=== PATIENT | male | born 1960 | race Caucasian/White ===

== ENCOUNTER 2024-08-01 11:41 | Outpatient (AMB) | payer OTHER, SELFPAY ==
--- NOTE | 2024-08-01 10:45 | A.OFFPC_ITS ---
Vital Signs 08/01/24 11:56 Height 5 ft 10.08 in Weight 217 lb 4 oz BMI 31.1 BP 124/76 Blood Pressure Location Lt brachial Position Sitting Respiration 14 Pulse 78 Pulse Source Pulse Oximeter Temp 98.6 F Temp Source Oral Pulse Oximetry (%) 97 Oxygen Delivery Method Room Air Intake Visit Reasons: [facility] FROM [facility] Intake Note: New patient visit Applied Psychology Professor Required: No Allergies No Known Allergies Allergy (Verified 08/01/24 11:52) Tobacco use date assessed: 08/01/24 Dental Screening Dental Screen Date: 08/01/24 Did you have a dental visit in the last 12 months?: No Did you have a dental problem in the last 6 months where you did not have access to dental care?: No Was dental information given to patient?: Patient has dentist HPI HPI Comments History of Present Illness Details This is a 63-year-old male with a past medical history of lower back pain, vitamin-D deficiency, BPH, prostate cancer and pancreatitis presenting for follow up. He transferred from my panel at [facility] primary care. His last physical exam was 12/29/2023. He has since switched insurance. The patient was diagnosed with prostate cancer in 02/2024. He was already seen by Dr. Comer for BPH. He underwent TURP in 01/16/2021. He was referred back to Dr. Comer when his PSA came back elevated. Patient has a prostatectomy scheduled on 08/21/2024. He has a preop scheduled at the [facility] preop clinic on 08/16/2024. He was seen at the emergency department at [facility] on 07/22/2024 for evaluation of lower abdominal pain radiating to the penis and testicles. Patient says he had a CT scan and urine and blood tests. They ruled out obstruction, infection, aneurysm and stones. He still gets the pain, but it comes and goes. He feels like it is a nerve pain. Has a history of lower back pain which has been doing well since he got arch supports in his shoes. When he has the pain in his lower abdomen he also gets a tingling feeling in his right anterior thigh, and if he does not change positions it will progress to pain. There is no weakness in his extremities or loss of bowel or bladder control. Patient has a history of high blood pressure and has worked on lifestyle modifications. His blood pressure is normal today. He has a history of vitamin-D deficiency. He has taken supplements inconsistently. His vitamin D level was checked after his physical exam. Records transfer pending. Patient had a colonoscopy that was normal on 12/14/2020. Repeat examination was recommended in 10 years. Hyperlipidemia is treated with atorvastatin 20 mg. ROS: Constitutional: No unexplained weight loss, fever, chills, fatigue or night sweats. Respiratory: No shortness of breath Cardiovascular: No chest pain Gastrointestinal: No anorexia, nausea, vomiting or diarrhea. No blood in stools. Genitourinary: No dysuria, hematuria, urinary frequency. Neurologic: No headache, dizziness, syncope, unilateral weakness, ataxia, numbness Musculoskeletal: see HPI Hematologic/Lymphatics: No bleeding or bruising. No painful lymph nodes. Skin: No rash or itching. Psychiatric: No depression. No SI/HI. Physical exam: Constitutional: Alert, in no distress. Head: Normocephalic. Eyes: Pupils are equal, round and reactive to light. Extraocular muscles intact. Neck: Supple, Full range of motion. No lymphadenopathy. No palpable thyroid masses. Respiratory: Clear to auscultation. Cardiovascular: S1 S2 regular. No murmurs. Gastrointestinal: Abdomen soft, non-tender, non-distended. Normal bowel sounds. No palpable masses. Genitourinary: No costovertebral angle tenderness. Extremities: Warm and well perfused. No clubbing, cyanosis or edema. Psychiatric: Normal mood and affect [facility] Medical History (Updated 08/01/24 @ 13:26 by MERARI Stanley) Prostate cancer Right leg paresthesias Vitamin D deficiency Pilonidal cyst Pancreatitis Palpitations HTN (hypertension) Obesity, Class I, BMI 30.0-34.9 (see actual BMI) Dermatographism Congenital spondylolisthesis Chest pressure Benign prostatic hyperplasia Surgical History (Updated 08/01/24 @ 13:26 by MERARI Stanley) S/P TURP (transurethral resection of prostate) Social History Housing: House Patient Tobacco Use Status: Never used Tobacco e-Cigarette/Vaping Use: Never Used Second Hand Smoke Exposure: No service: No Current occupational status: employed and retired Cognitive needs: No Hearing needs: No Vision needs: No Questionnaire PHQ-9 Over the last 2 weeks, how often have you been bothered by any of the following problems? 1. Little interest or pleasure in doing things: not at all 2. Feeling down, depressed, or hopeless: not at all 3. Trouble falling or staying asleep, or sleeping too much: not at all 4. Feeling tired or having little energy: not at all 5. Poor appetite or overeating: not at all 6. Feeling bad about yourself - or that you are a failure or have let yourself or your family down: not at all 7. Trouble concentrating on things, such as reading the newspaper or watching television: not at all 8. Moving or speaking so slowly that other people could have noticed. Or the opposite - being so fidgety or restless that you have been moving around a lot more than usual: not at all 9. Thoughts that you would be better off or of hurting yourself in some way: not at all Total score: 0 Depression Screening Interpretation: Negative Depression Screening Done: Yes 00269 - PHQ-9 Billing: Yes Source: Developed by Drs. Ozzie Restrepo, Lilo Matta, Mikey Andrews and colleagues, with an educational nilsa from [employer]. Thrive Questionnaire Date Thrive assessed: 08/01/24 I am a: Patient What is your living situation today?: I have a steady place to live Within the past 12 months, did the food you bought not last and you didn't have the money to get more?: Never true Within the past 12 months, did you worry whether your food would run out before you got money to buy more?: Never true Do you have trouble paying for medicines?: No Do you have trouble getting transportation to medical appointments?: No Do you have trouble paying your heating and electricity bill?: No Do you have trouble taking care of your child, family member or friend?: No Do you have trouble with day-to-day activities such as bathing, preparing meals, shopping, managing finances, etc.?: No Are you currently unemployed and looking for a job?: No Are you interested in more education?: No Please select the resources that you would like help with: None Currently or been in a relationship where the following occur: No concerns reported THRIVE Score: 0 AUDIT C Alcohol Use Questionnaire (AUDIT-C) 1. How often do you have a drink containing alcohol?: 4 or more times a week 2. How many drinks containing alcohol do you have on a typical day when you are drinking?: 3 or 4 3. How often do you have six or more drinks on one occasion?: Monthly Total Score: 7 SIS-7 AMB Questionnaire SIS-7 Date SIS - 7 assessed: 08/01/24 Feeling nervous, anxious, or on edge: 1 = Several days Not being able to stop or control worryin = Not at all Worrying too much about different things: 0 = Not at all Trouble relaxin = Several days Being so restless that it is hard to sit still: 0 = Not at all Becoming easily annoyed or irritable: 0 = Not at all Feeling afraid as if something awful might happen: 0 = Not at all Total SIS-7 score (0-4 normal; 5-9 mild; 10-14 moderate; 15-21 severe): 2 Source: Developed by Drs. Ozzie Restrepo, Lilo Matta, Mikey Andrews and colleagues, with an educational nilsa from [employer]. SIS-7 Assessment Billing SIS-7 Assessment Tool: SIS-7 Assessment 31166 Physical exam (Primary Care) Vital Signs: Last Vital Signs Temp 98.6 F 08/01/24 11:56 Pulse 78 08/01/24 11:56 Resp 14 08/01/24 11:56 BP 124/76 08/01/24 11:56 Pulse Ox 97 08/01/24 11:56 Oxygen Delivery Method Room Air 08/01/24 11:56 BMI result Body Mass Index 31.1 Tobacco/Smoking Status: Tobacco use Status Tobacco use date assessed 08/01/24 08/01/24 12:03 Patient Tobacco Use Status Never used Tobacco 08/01/24 12:03 e-Cigarette/Vaping Use Never Used 08/01/24 12:03 PHQ-9: PHQ-9 Score PHQ-9: Total score 0 08/01/24 12:51 Depression Screening Interpretation: Negative Thrive Assessment: Date of Thrive Assessment Date Thrive assessed 08/01/24 08/01/24 12:51 Currently or been in a relationship where the following occur: No concerns reported Coding Level of Care Code Est Pt Level 4 (59670) Complex EM visit Add On G2211 Diagnoses Right leg paresthesias R20.2 Prostate cancer C61 Lower abdominal pain R10.30 Additional Codes SIS-7 Assessment Billing - SIS-7 Assessment Tool: SIS-7 Assessment 59072 ([id number]) Assessment & Plan Assessment & Plan (1) Right leg paresthesias: Code(s): R20.2 - Paresthesia of skin Category: Medical (2) Prostate cancer: Code(s): C61 - Malignant neoplasm of prostate Category: Medical (3) Lower abdominal pain: Code(s): R10.30 - Lower abdominal pain, unspecified Plan Patient is well-appearing. No red flags on exam today. Requested records from [facility]. Patient says they suspect it may be a nerve irritated due to enlarged prostate/prostate cancer. Prostatectomy is scheduled this month. He has a preop controlled with the [facility] preop clinic. Warning signs warranting re-evaluation at the emergency department reviewed with the patient. He has a history of chronic lower back pain, but it has not been a problem recently. If symptoms persist following surgery we discussed moving forward with an MRI of the lumbar spine. He will contact me if his symptoms do not resolve. He will schedule a physical in 2024.
[2024-08-01 11:56] VITALS: BP 124/76; PULSE 78; RESP 14; TEMP 37; O2SAT 97; BMI 31.1
== END 2024-08-01 12:44 | disposition home or self-care (01) ==
PROVIDERS: Visit Provider Physician Assistant Medical
DX: R20.2 Paresthesia of skin (principal); C61 Malignant neoplasm of prostate; R10.30 Lower abdominal pain, unspecified

== ENCOUNTER → 2024-08-01 11:41 | Outpatient (BNVA) | payer OTHER, SELFPAY | PROVIDERS: Visit Provider Physician Assistant Medical | DX: R20.2 Paresthesia of skin (principal); C61 Malignant neoplasm of prostate; R10.30 Lower abdominal pain, unspecified | CPT/HCPCS: 96127 ==

== ENCOUNTER 2025-01-20 08:05 | Outpatient (AMB) | payer OTHER, SELFPAY ==
--- NOTE | 2025-01-20 08:07 | MHC.PC.OV ---
Vital Signs 01/20/25 08:12 Height 5 ft 10.08 in Weight 222 lb 4 oz BMI 31.8 BP 136/82 Blood Pressure Location Lt brachial Position Sitting Respiration 14 Pulse 64 Pulse Source Pulse Oximeter Pulse Oximetry (%) 100 Oxygen Delivery Method Room Air Intake Visit Reasons: Annual PE Intake Note: Physical Practical Ministries Professor Required: No Allergies No Known Allergies Allergy (Verified 01/20/25 08:10) Tobacco use date assessed: 01/20/25 Dental Screening Dental Screen Date: 08/01/24 HPI HPI Comments History of Present Illness Details This is a 64-year-old male with a past medical history of lower back pain, vitamin-D deficiency, BPH, prostate cancer and pancreatitis presenting for a physical exam. The patient was diagnosed with prostate cancer in February 2024. He was already seen by Dr. Comer for BPH and TURP. He was referred back to Dr. Comer when his PSA came back elevated. Patient underwent prostatectomy 08/21/2024. No complications other than mild ED which is urologist treats with tadalafil 20 mg. Patient has a history of high blood pressure and has worked on lifestyle modifications. His blood pressure is mildly elevated today. He is very active. He plays golf regularly and runs to golf leaves. He follows a low-sodium diet. He does not smoke. He has a history of vitamin-D deficiency. He is on a multivitamin which contains vitamin-D. Patient had a colonoscopy that was normal on 12/14/2020. Repeat examination was recommended in 10 years. Hyperlipidemia is treated with atorvastatin 20 mg. He endorses bilateral, chronic tinnitus since he was in his 20s or 30s. It is not associated with headache or dizziness or hearing loss. In the past 2 years he notices it has gotten a little bit worse. He will schedule an eye exam. We did not have Prevnar 20 vaccine available at the office today so he will receive this at his pharmacy. ROS: Constitutional: No unexplained weight loss, fever, chills, fatigue or night sweats. Eyes: No vision changes, blurry vision, double vision, eye pain, eye redness, eye discharge. ENT: No hearing loss, ear pain, sneezing, congestion, runny nose or sore throat. Respiratory: No shortness of breath, cough or sputum production. Cardiovascular: No chest pain, chest pressure or chest discomfort. No palpitations or pedal edema. Gastrointestinal: No anorexia, nausea, vomiting or diarrhea. No abdominal pain or blood in stool. Genitourinary: No dysuria, hematuria, urinary frequency. Neurologic: No headache, dizziness, syncope, unilateral weakness, ataxia, numbness or tingling in the extremities. Musculoskeletal: No muscle pain, back pain, joint pain or swelling. Hematologic/Lymphatics: No bleeding or bruising. No painful lymph nodes. Skin: No rash or itching. No changing or new growths. Patient has seen Dermatology for skin exams. Endocrine: No cold or heat intolerance. No polyuria or polydipsia. Psychiatric: No depression or anxiety. No SI/HI. Physical exam: Constitutional: Alert, in no distress. Head: Normocephalic. Eyes: Pupils are equal, round and reactive to light. Extraocular muscles intact. Ear, Nose and Throat: Canals clear. TMs normal. Normal nasal mucosa. No nasal discharge. No oral lesions. Neck: Supple, Full range of motion. No lymphadenopathy. No palpable thyroid masses. Respiratory: Clear to auscultation. Cardiovascular: S1 S2 regular. No murmurs. No carotid bruits. Gastrointestinal: Abdomen soft, non-tender, non-distended. Normal bowel sounds. No palpable masses. Genitourinary: Deferred, patient seen by Urology. Neurologic: No focal neurological deficits. Symmetric patellar reflexes. Moves all extremities spontaneously. Sensation intact bilaterally. Skin: No rashes. Musculoskeletal: No gross deformities. Normal range of motion. Extremities: Warm and well perfused. No clubbing, cyanosis or edema. Symmetric peripheral pulses bilaterally. Psychiatric: Normal mood and affect [facility] Medical History (Updated 01/20/25 @ 09:07 by MERARI Stanley) Tinnitus Routine physical examination Prostate cancer Right leg paresthesias Vitamin D deficiency Pilonidal cyst Pancreatitis Palpitations HTN (hypertension) Obesity, Class I, BMI 30.0-34.9 (see actual BMI) Dermatographism Congenital spondylolisthesis Chest pressure Benign prostatic hyperplasia Surgical History S/P TURP (transurethral resection of prostate) Social History (Updated 01/20/25 @ 08:17 by Tonya Santiago CMA) Housing: House Alcohol intake: current Patient Tobacco Use Status: Never used Tobacco e-Cigarette/Vaping Use: Never Used Second Hand Smoke Exposure: No service: No Current occupational status: employed and retired Cognitive needs: No Hearing needs: No Vision needs: No Questionnaire PHQ-9 Over the last 2 weeks, how often have you been bothered by any of the following problems? 1. Little interest or pleasure in doing things: not at all 2. Feeling down, depressed, or hopeless: not at all 3. Trouble falling or staying asleep, or sleeping too much: not at all 4. Feeling tired or having little energy: not at all 5. Poor appetite or overeating: not at all 6. Feeling bad about yourself - or that you are a failure or have let yourself or your family down: not at all 7. Trouble concentrating on things, such as reading the newspaper or watching television: not at all 8. Moving or speaking so slowly that other people could have noticed. Or the opposite - being so fidgety or restless that you have been moving around a lot more than usual: not at all 9. Thoughts that you would be better off or of hurting yourself in some way: not at all Total score: 0 Depression Screening Interpretation: Negative Depression Screening Done: Yes 22823 - PHQ-9 Billing: Yes Source: Developed by Drs. Ozzie Restrepo, Lilo Matta, Mikey Andrews and colleagues, with an educational nilsa from [employer]. Thrive Questionnaire Date Thrive assessed: 01/16/25 I am a: Patient What is your living situation today?: I have a steady place to live Within the past 12 months, did the food you bought not last and you didn't have the money to get more?: Never true Within the past 12 months, did you worry whether your food would run out before you got money to buy more?: Never true Do you have trouble paying for medicines?: No Do you have trouble getting transportation to medical appointments?: No Do you have trouble paying your heating and electricity bill?: No Do you have trouble taking care of your child, family member or friend?: No Do you have trouble with day-to-day activities such as bathing, preparing meals, shopping, managing finances, etc.?: No Are you currently unemployed and looking for a job?: No Are you interested in more education?: No Please select the resources that you would like help with: None Currently or been in a relationship where the following occur: No concerns reported THRIVE Score: 0 AUDIT C Alcohol Use Questionnaire (AUDIT-C) 1. How often do you have a drink containing alcohol?: 2-3 times a week 2. How many drinks containing alcohol do you have on a typical day when you are drinking?: 3 or 4 3. How often do you have six or more drinks on one occasion?: Less than monthly Total Score: 5 SIS-7 AMB Questionnaire SIS-7 Date SIS - 7 assessed: 01/20/25 Feeling nervous, anxious, or on edge: 0 = Not at all Not being able to stop or control worryin = Not at all Worrying too much about different things: 0 = Not at all Trouble relaxin = Not at all Being so restless that it is hard to sit still: 0 = Not at all Becoming easily annoyed or irritable: 0 = Not at all Feeling afraid as if something awful might happen: 0 = Not at all Total SIS-7 score (0-4 normal; 5-9 mild; 10-14 moderate; 15-21 severe): 0 Source: Developed by Drs. Ozzie Restrepo, Lilo Matta, Mikey Andrews and colleagues, with an educational nilsa from [employer]. SIS-7 Assessment Billing SIS-7 Assessment Tool: SIS-7 Assessment 74794 Physical exam (Primary Care) Vital Signs: Last Vital Signs Pulse 64 01/20/25 08:12 Resp 14 01/20/25 08:12 BP 136/82 01/20/25 08:12 Pulse Ox 100 01/20/25 08:12 Oxygen Delivery Method Room Air 01/20/25 08:12 BMI result Body Mass Index 31.8 Tobacco/Smoking Status: Tobacco use Status Tobacco use date assessed 01/20/25 01/20/25 08:17 Patient Tobacco Use Status Never used Tobacco 01/20/25 08:17 e-Cigarette/Vaping Use Never Used 01/20/25 08:17 PHQ-9: PHQ-9 Score PHQ-9: Total score 0 01/20/25 08:17 Depression Screening Interpretation: Negative Thrive Assessment: Date of Thrive Assessment Date Thrive assessed 01/16/25 01/20/25 08:08 Currently or been in a relationship where the following occur: No concerns reported Coding Level of Care Code Est Pt Prev Care >65y(74749) Diagnoses Routine physical examination Z00.00 Vitamin D deficiency E55.9 Primary hypertension I10 Hypertension type: primary hypertension Prostate cancer C61 Tinnitus of both ears H93.13 Laterality: bilateral Additional Codes SIS-7 Assessment Billing - SIS-7 Assessment Tool: SIS-7 Assessment 88573 ([id number]) PHQ-9 - 32413 - PHQ-9 Billing: Yes ([id number]) Assessment & Plan Assessment & Plan (1) Routine physical examination: Code(s): Z00.00 - Encounter for general adult medical examination without abnormal findings Category: Medical Plan: Patient is seen today for a routine physical. As part of this visit we reviewed the following issues, which are considered and essential part of preventative health in this age group: - Screening for colon cancer - Cholesterol screening - Nutritional and exercise counseling - Counseling of injury prevention including fire prevention, smoke alarms and seat belt usage - Screening for depression - Prevention of and/or testing for infectious diseases - Education about skin cancer - Recommendations about immunizations - Recommendation of an eye exam - Screening for substance abuse (2) Vitamin D deficiency: Code(s): E55.9 - Vitamin D deficiency, unspecified Category: Medical Plan: Check vitamin-D level. (3) HTN (hypertension): Code(s): I10 - Essential (primary) hypertension Category: Medical Qualifiers: Hypertension type: primary hypertension Qualified Code(s): I10 - Essential (primary) hypertension Plan: Blood pressure is in the prehypertensive range today. Advised to exercise, avoid caffeine and follow a low-sodium diet. He has a blood pressure cuff at home. Patient will send blood pressure readings in a month for review. (4) Prostate cancer: Code(s): C61 - Malignant neoplasm of prostate Category: Medical Plan: Patient seen by Urology every 6 months and reports recent PSA was 0. (5) Tinnitus: Code(s): H93.19 - Tinnitus, unspecified ear Category: Medical Qualifiers: Laterality: bilateral Qualified Code(s): H93.13 - Tinnitus, bilateral Plan: Patient says this is not pulsatile. He uses white noise at night so he can sleep when it is more noticeable. Reports it has been worsening over the past couple of years and I will refer him to ENT for evaluation. Plan Follow up in 1 year for an annual physical exam or sooner as needed. Orders: Orders Comprehensive Met. Panel Today C61 - Malignant neoplasm of prostate, E55.9 - Vitamin D deficiency, unspecified, I10 - Essential (primary) hypertension, Z00.00 - Encounter for general adult medical examination without abnormal findings Complete Blood Count Auto Diff Today C61 - Malignant neoplasm of prostate, E55.9 - Vitamin D deficiency, unspecified, I10 - Essential (primary) hypertension, Z00.00 - Encounter for general adult medical examination without abnormal findings Vitamin D 25-OH (D2 and D3) Today C61 - Malignant neoplasm of prostate, E55.9 - Vitamin D deficiency, unspecified, I10 - Essential (primary) hypertension, M85.80 - Other specified disorders of bone density and structure, unspecified site, Z00.00 - Encounter for general adult medical examination without abnormal findings Lipid Panel Today C61 - Malignant neoplasm of prostate, E55.9 - Vitamin D deficiency, unspecified, E78.5 - Hyperlipidemia, unspecified, I10 - Essential (primary) hypertension, Z00.00 - Encounter for general adult medical examination without abnormal findings Referrals Ear/Nose/Throat Referral H93.19 - Tinnitus, unspecified ear
[2025-01-20 08:12] VITALS: BP 136/82; PULSE 64; RESP 14; O2SAT 100; BMI 31.8
== END 2025-01-20 08:59 | disposition home or self-care (01) ==
LOC: HO.HMCFM 08:06
PROVIDERS: PCP Physician Assistant Medical; Visit Provider Physician Assistant Medical
DX: Z00.00 Encounter for general adult medical examination without abnormal findings (principal); E55.9 Vitamin D deficiency, unspecified; I10 Essential (primary) hypertension; C61 Malignant neoplasm of prostate; H93.13 Tinnitus, bilateral

== ENCOUNTER → 2025-01-20 08:05 | Outpatient (BNVA) | payer OTHER, SELFPAY | PROVIDERS: PCP Physician Assistant Medical; Visit Provider Physician Assistant Medical | DX: Z00.00 Encounter for general adult medical examination without abnormal findings (principal); N40.0 Benign prostatic hyperplasia without lower urinary tract symptoms; E78.5 Hyperlipidemia, unspecified; E55.9 Vitamin D deficiency, unspecified; I10 Essential (primary) hypertension; C61 Malignant neoplasm of prostate; H93.13 Tinnitus, bilateral | CPT/HCPCS: 96127 ==

== ENCOUNTER 2025-01-20 09:16 | Outpatient (REF) | payer OTHER, SELFPAY ==
[2025-01-20 11:24] LABS: MANUAL DIFF FLAG NO
[2025-01-20 11:56] LABS: Basophils Absolute Auto 0.1 X10*3/uL (0.0-0.2); Basophils Percent Auto 0.9 % (0-2); Eosinophils Absolute Auto 0.1 X10*3/uL (0.0-0.4); Eosinophils Percent Auto 2.2 % (0-4); Hematocrit 45.4 % (42.0-52.0); Hemoglobin 15.4 g/dl (14.0-18.0); Imm Gran Abs Auto 0.03 X10*3/uL (0.00-0.03); Imm Gran Pct Auto 0.5 % (0.0-0.4); Lymphocytes Absolute Auto 1.6 X10*3/uL (1.2-4.9); Lymphocytes Percent Auto 28.3 % (20-40); Mean Corpuscular HGB Conc 33.9 g/dl (31.0-36.0); Mean Corpuscular Hemoglobin 30.7 pg (27.0-33.0); Mean Corpuscular Volume 90.4 fL (80.0-98.0); Mean Platelet Volume 10.9 fL (9.4-12.4); Monocytes Absolute Auto 0.4 X10*3/uL (0.1-1.2); Monocytes Percent Auto 6.7 % (2-11); Neutrophils Absolute Auto 3.6 x10*3/uL (2.0-8.3); Neutrophils Percent Auto 61.4 % (45-73); Platelet Count 205 X10*3/uL (160-400); Red Blood Count 5.02 X10*6/uL (4.60-5.80); Red Cell Distribution Width 11.9 % (11.0-16.0); White Blood Count 5.8 X10*3/uL (4.8-10.8)
[2025-01-20 12:35] LABS: Alanine Aminotransferase 33 U/L (0-40); Albumin Level 4.4 g/dL (3.5-5.0); Alkaline Phosphatase 89 U/L (39-117); Anion Gap 10 (12-20); Aspartate Amino Transferase 28 U/L (5-37); Bilirubin Total 0.9 mg/dL (0.0-1.0); Blood Urea Nitrogen 10 mg/dL (9-16); Calcium 9.2 mg/dL (8.4-10.2); Carbon Dioxide 28 mmol/L (22-29); Chloride 107 mmol/L (96-108); Cholesterol 159 mg/dL (<200); Estimated Glomerular Filt Rate > 60; Glucose Random 92 mg/dL (60-115); HDL Cholesterol 49 mg/dL (>40); LDL Cholesterol Calculated 94 mg/dL (<100); Sodium 141 mmol/L (135-145); Total Protein 6.9 g/dL (6.5-8.0); Triglycerides 81 mg/dL (<150)
[2025-01-24 16:08] LABS: Vitamin D 25-OH, D2 <4 ng/mL; Vitamin D 25-OH, D3 25 ng/mL; Vitamin D 25-OH, Total 25 ng/mL (30-100)
== END 2025-01-20 09:17 | disposition home or self-care (01) ==
LOC: HO.WFDLDS 09:16
PROVIDERS: Visit Provider Physician Assistant Medical
DX: Z00.00 Encounter for general adult medical examination without abnormal findings (principal); M85.80 Other specified disorders of bone density and structure, unspecified site; E55.9 Vitamin D deficiency, unspecified; I10 Essential (primary) hypertension; C61 Malignant neoplasm of prostate; E78.5 Hyperlipidemia, unspecified
CPT/HCPCS: 36415; 80053; 80061; 82306; 85025